=== PATIENT | male | born 2000 | race American Indian/Alaskan Native ===

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

== ENCOUNTER 2025-02-01 20:10 | Emergency (ER) | payer MEDICAID ==
[~2025-02-01] VITALS: Ht 165.1 cm; Wt 75.0 kg
[2025-02-01] MEDS: ketorolac trometh 15mg/ml vial 15 MG/ML ML IM ONE (22:31)
[2025-02-01] MEDS ORDERED: ONDA-243 PO (23:35)
--- NOTE | 2025-02-01 23:36 | Physician Documentation ---
History of Present Illness ~ Chief Complaint: Headache Stated Complaint: MIGRAINE Time Seen by MD: 22:18 HPI For year old male with a history of migraines has been seen 3 times at [facility] and received IV medications helping him alleviate his pain. Today he decided to come to [facility] to have his migraine evaluated. Said his pain is behind both eyes. Reports light sensitivity. Denies any acute injury denies nausea vomiting Day of Onset: February 01, 2025 Medication Reconciliation Allergies: Coded Allergies: No Known Allergies (Unverified , 05/04/19) Scheduled PRN ONDANSETRON ODT 4mg tablet (Ondansetron Odt), 1 TAB PO Q6H PRN PRN for nausea/vomiting Past Medical History Past Medical History: No Pertinent History Past Surgical History: noncontributory Lives In: Home Review of Systems All Other Systems at this time: Reviewed and Negative ROS As stated above in the HPI, otherwise all systems are reviewed and negative. Physical Exam Vital Signs: Temperature: 99.4, Source: Oral, Heart Rate: 62, Respiratory Rate: 16, BP: 162/62, Pulse Oximetry: 98, Weight: 75.000 Oxygen Flow Rate: 0 Progress Results/Orders Results/Orders Orders - KATHRYN CAUSEY NP General Nursing Order (02/01/25 ) Completed Orders - KATHRYN CAUSEY NP Ketorolac Trometh 15mg/Ml Vial (Toradol (02/01/25 22:20) Medications Received in ER Medications (Trade) Dose Ordered Sig/Rafael Route PRN Reason Start Time Stop Time Status Last Admin Dose Admin (Toradol injection) 15 mg ONCE ONCE IM 02/01/25 22:20 02/01/25 22:21 DC 02/01/25 22:31 15 MG Vital Signs 02/01/25 20:40 Temp 99.4 Pulse 62 Resp 16 B/P (MAP) 162/62 Pulse Ox 98 O2 Flow Rate 0 Medical Decision Making Findings Toradol and supplemental oxygen to attempt to alleviate patient's symptoms. He reported modest improvement.. At this stage patient needs to follow up with primary care for further evaluation of his migraines. Needs to get on Imitrex or try other modalities of treatment as ER visits are not helping with his long- term outcome. Differential Dx:Considerations: Include: LAZAR-Cluster, LAZAR-Migraine, LAZAR- Hypertensive, LAZAR-Muscular contraction, LAZAR-Post lumbar puncture, Carbon monoxide toxicity, Close head injuyr, CVA, Fever induced, Hemorrhage-Epidural, Hemorrhage-Intracerebral, Hemorrhage-Subarachnoid, Hemorrhage-Subdural, Mass lesion, Meningitis, Post-traumtic, Pseudotumor cerebri, Sinusitis, Temporal arteritis, Trigeminal neuralgia, Other Departure Disposition: 01 HOME / SELF CARE / HOMELESS Impression: Primary Impression: Migraine Discharge Instructions: Chronic Migraine Headache, [id number] Additional Instructions: We are happy to help you this evening. I recommend that she follow up with prim jenise care and try drug like Imitrex to avoid further exacerbations like you of the experiencing. These are better modality of treatment then having to come to the ER and received various IV medications. May also benefit from a Neurology evaluation if he continued to have problems Referrals: NO PRIMARY CARE PROVIDER (PCP) Prescriptions ONDANSETRON ODT 4mg tablet (ONDANSETRON ODT) 4 Mg Tab.rapdis 1 TAB PO Q6H PRN PRN for nausea/vomiting for 4 Days, #16 TAB 0 Refills Prov: KATHRYN CAUSEY NP 02/01/25 Education Educated: Patient Signature Scribe Signature: f Attestation: The note accurately reflects work and decisions made by me.Kathryn Causey - ALEXANDRO 02/01/25 23:36 KATHRYN CAUSEY NP February 01, 2025 23:36
[2025-02-01 23:38] VITALS: BP 120/81; PULSE 71; RESP 16; TEMP 98.6; O2SAT 98
== END 2025-02-01 23:42 | disposition home or self-care (01) ==
LOC: ER 20:10
DX: G43.909 Migraine, unspecified, not intractable, without status migrainosus (principal)
CPT/HCPCS: 96372; 99283; J1885

== ENCOUNTER 2025-02-09 08:20 | Emergency (ER) | payer MEDICAID ==
[~2025-02-09] VITALS: Ht 154.9 cm; Wt 65.8 kg
[~2025-02-09 08:20] MED LIST: ONDA-243 PO
[2025-02-09] MEDS: diphenhydrAMINE 50 mg/ml inj IV ONE (08:55)
[2025-02-09] MEDS: normal saline 1000ml 1,000 ML IV ONE (08:55)
[2025-02-09] MEDS: proCHLORperazine 10 MG/2 ml inj IV ONE (08:56)
[2025-02-09] MEDS: ketorolac trometh 15mg/ml vial 15 MG/ML ML IV ONE (09:42)
[2025-02-09] MEDS: ketorolac trometh 30MG/ML vial 30 MG/ML VIAL IV ONE (09:49)
[2025-02-09] MEDS: HYDROmorphone 1 mg/ml syringe IV ONE (11:39)
[2025-02-09 12:16] VITALS: BP 134/94; PULSE 78; RESP 13; TEMP 97.7; O2SAT 98
[2025-02-09] MEDS ORDERED: RIZA-7 PO (12:31)
--- NOTE | 2025-02-09 12:31 | Physician Documentation ---
History of Present Illness ~ Chief Complaint: Headache Stated Complaint: VOMITING/MIGRAINE Time Seen by MD: 08:34 Mode of Arrival: POV HPI Patient is here for headache. He has had headache intermittently for the last two weeks. Was recently prescribed sumatriptan but it did not help. He he was also prescribed Depakote to take at night he took it last night and woke up today with a headache and some diffuse pelvic headache. Had a CT scan at an outside hospital last week. No other neurological symptoms he has photophobia and phonophobia. Medication Reconciliation Allergies: Coded Allergies: No Known Allergies (Unverified , 05/04/19) Scheduled PRN ONDANSETRON ODT 4mg tablet (Ondansetron Odt), 1 TAB PO Q6H PRN PRN for nausea/vomiting Past Medical History Past Medical History: No Pertinent History Past Surgical History: noncontributory Smoking Status: Current every day smoker Lives In: Home Physical Exam Vital Signs: Temperature: 97.7, Source: Oral, Heart Rate: 78, Respiratory Rate: 13, BP: 134/94, Pulse Oximetry: 98, Weight: 65.850 Oxygen Flow Rate: 0 Physical Exam General: Awake and Alert, no acute distress. HEENT: Conjunctiva pink, Sclera clear, Mucus Membranes moist. Neck: Supple without masses and tenderness. Resp: Unlabored. Lungs clear to auscultation bilaterally. Heart: Regular Rate and rhythm, normal S1 and S2 without murmur, rub or gallop. Abdomen: Soft and non tender no organomegaly Extremities: No cyanosis,clubbing or edema. Skin: Warm and Dry. Neuro: GCS 15; no focal deficits Progress Results/Orders Results/Orders Completed Orders - GRACIELA WHITE MD Normal Saline 1000ml (Sodium Chloride 10 (02/09/25 08:40) Prochlorperazine Inj (Compazine Inj) (02/09/25 08:40) Diphenhydramine Inj (Benadryl Inj.) (02/09/25 08:40) Ketorolac Trometh 30mg/Ml Vial (Toradol (02/09/25 09:35) Ketorolac Trometh 15mg/Ml Vial (Toradol (02/09/25 09:40) Hydromorphone 1 Mg/Ml/Pf (Dilaudid Inj.) (02/09/25 11:35) Medications Received in ER Medications (Trade) Dose Ordered Sig/Rafael Route PRN Reason Start Time Stop Time Status Last Admin Dose Admin Sodium Chloride 1,000 ml @ 1,000 mls/hr ONCE ONCE IV 02/09/25 08:40 02/09/25 09:39 DC 02/09/25 08:55 1,000 MLS/HR (Compazine inj) 10 mg ONCE ONCE IV 02/09/25 08:40 02/09/25 08:41 DC 02/09/25 08:56 10 MG (Benadryl inj.) 50 mg ONCE ONCE IV 02/09/25 08:40 02/09/25 08:41 DC 02/09/25 08:55 50 MG (Toradol injection) 15 mg ONCE ONCE IV 02/09/25 09:40 02/09/25 09:41 DC 02/09/25 09:42 15 MG (Dilaudid inj.) 1 mg ONCE ONCE IV 02/09/25 11:35 02/09/25 11:36 DC 02/09/25 11:39 1 MG Vital Signs 02/09/25 02/09/25 02/09/25 02/09/25 08:27 09:11 09:15 09:42 Temp 97.7 97.7 Pulse 67 67 Resp 18 18 18 19 B/P (MAP) 148/102 140/98 (112) Pulse Ox 99 99 O2 Flow Rate 0 0 02/09/25 02/09/25 02/09/25 02/09/25 11:07 11:39 12:14 12:15 Temp 97.7 Pulse 78 Resp 14 16 12 16 B/P (MAP) 134/94 (107) Pulse Ox 98 O2 Flow Rate 0 02/09/25 12:16 Temp 97.7 Pulse 78 Resp 13 B/P (MAP) 134/94 Pulse Ox 98 Medical Decision Making Findings Patient presents with a headache that is he has had for two weeks. He had a CT scan has a outside hospital last week with a reported says he had abnormalities. He had had an IV established given a L of saline Benadryl Compazine. Last time oxygen therapy seemed to help potentially a cluster headache so he was placed on oxygen that has helped much relief. He was then given Toradol a mg of Dilaudid after all these medications he is now resting comfortably feels much better. I wrote a prescription for Maxalt that he can try and follow up with his regular doctor. He has not MRI scheduled for next week. Departure Disposition: HOME / SELF CARE / HOMELESS Impression: Primary Impression: Headache Qualified Codes: R51.9 - Headache, unspecified Condition: Improved Discharge Instructions: Headache Referrals: NO PRIMARY CARE PROVIDER (PCP) Prescriptions Rizatriptan Benzoate (Maxalt Piano Mover) 10 Mg Tab.rapdis 1 TAB PO ONCE for 30 Days, #12 TAB 0 Refills Prov: GRACIELA WHITE MD 02/09/25 Education Educated: Patient Educated regarding: diagnosis, treatment, prognosis, need for follow up Signature Scribe Signature: no scribe Attestation: no scribe GRACIELA WHITE MD Feb 09, 2025 12:31
== END 2025-02-09 12:45 | disposition home or self-care (01) ==
LOC: ER 08:20
DX: R51.9 Headache, unspecified (principal); F17.200 Nicotine dependence, unspecified, uncomplicated
CPT/HCPCS: 96361; 96374; 96375; 99284; J0780; J1171; J1200; J1885; J7030; A4620

== ENCOUNTER 2025-06-04 23:12 | Emergency (ER) | payer MEDICAID ==
[~2025-06-04] VITALS: Ht 170.2 cm; Wt 76.7 kg
[~2025-06-04 23:12] MED LIST changes: +RIZA-7 PO
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
[2025-06-04] MEDS: LIDOcaine 1% W/epiNEPHrine 1:100,000 20ml vial SQ ONE (23:25)
[2025-06-05] MEDS ORDERED: ibuprofen tablet 400 MG TABLET PO ONE (00:05)
[2025-06-05] MEDS: ibuprofen tablet 400 MG TABLET PO ONE (00:12)
[2025-06-05] MEDS: ondansetron 4mg rapidly disintigrating tab PO ONE (00:17)
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
[2025-06-05 00:25] VITALS: TEMP 97.6
[2025-06-05] MEDS: bacitracin 15gm ointment TP ONE (03:17)
[2025-06-05] MEDS: TETanus/Pertussis (Acell)/Diphther VAC/PF (Tdap-Adult) 0.5ml syringe IMVAC ONE (03:18)
[2025-06-05 03:40] VITALS: BP 135/84; PULSE 78; RESP 16; O2SAT 98
== END 2025-06-05 03:41 | disposition home or self-care (01) ==
LOC: ER 23:12
DX: S81.812A Laceration without foreign body, left lower leg, initial encounter (principal); S81.811A Laceration without foreign body, right lower leg, initial encounter; W17.81XA Fall down embankment (hill), initial encounter; Y93.89 Activity, other specified; Y92.89 Other specified places as the place of occurrence of the external cause; Y99.8 Other external cause status
CPT/HCPCS: 12002; 73590; 73610; 90471; 90715; 99285